=== PATIENT | male | born 1985 | race Caucasian/White ===

== ENCOUNTER → 2024-09-18 | Outpatient (REF) | payer SELFPAY | LOC: M SMT 13:47 | PROVIDERS: ATTEND Urology | DX: Z30.2 Encounter for sterilization (principal) ==

== ENCOUNTER → 2024-12-25 | Outpatient (REF) | payer SELFPAY | LOC: M SMT 09:39 | PROVIDERS: ATTEND Urology | DX: Z30.2 Encounter for sterilization (principal) ==

== ENCOUNTER → 2025-01-10 | Outpatient (REF) | payer SELFPAY ==
[2025-01-10 14:19] LABS: SEMEN APPEARANCE OPAQUE (OPAQUE); SEMEN VISCOSITY LIQUID (LIQUID); SEMEN VOLUME 1.6 ml (2.0-5.0); WBC CONCENTRATION <=1 M/ml (<=1 M/ml)
== END ==
LOC: M SMT 14:07
PROVIDERS: ATTEND Urology
DX: Z98.52 Vasectomy status (principal)